=== PATIENT | male | born 1960 | race African-American/Black ===

== ENCOUNTER 2020-04-26 09:53 | Emergency (ER) | payer OTHER, SELFPAY ==
[2020-04-26 09:55] VITALS: BP 158/99; PULSE 87; RESP 17; TEMP 36.6; O2SAT 97; BMI 27.8
--- NOTE | 2020-04-26 10:29 | ED.DCSUM_ITS ---
History of Present Illness Chief Complaint: Eye Problem Informant: Patient Narrative: 60-year-old male with no past medical history presents with complaints of eye redness and itching. 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 He will have clear drainage in the mornings and his eyes will be red and itchy throughout the day. He tried Visine drops with minimal relief. Does not wear contacts. Denies ocular pain or concern for foreign body. Denies vision changes or purulent discharge. Denies fevers, chills, nausea, vomiting, headache, sore throat, ear pain, or rhinorrhea. Past Medical History - Allergies and Home Meds Allergies/Adverse Reactions: Allergies No Known Allergies Allergy (Verified 04/26/20 09:55) Primary Care Physician: [facility] [Primary Care Provider] - Past Medical History: None Smoking Status: Never smoker Review of Systems General: Denies: Chills, Fever, Sweats Eyes: Reports: - - Tearing and redness. Denies: Visual changes - left, Visual changes - bilaterally, Diplopia ENT: Denies: Rhinorrhea, Sore throat Cardiovascular: Denies: Chest pain, Palpitations Respiratory: Denies: Dyspnea, Cough, Dyspnea on exertion Gastrointestinal: Denies: Abdominal pain, Nausea, Vomiting, Diarrhea, Melena, Hematochezia Genitourinary: Denies: Dysuria, Hematuria, Frequency Musculoskeletal: Denies: Back pain, Extremity Pain Skin: Denies: Rash, Wounds Neurological: Denies: Headache, Weakness, Numbness Physical Exam Vital Signs/Narrative: Vital Signs Temp Pulse Resp BP Pulse Ox 04/26/20 09:55 97.8 F 87 17 158/99 H 97 General: Well nourished, Well developed, No Acute Distress Head: Normocephalic, Atraumatic Eyes: Perrl, EOMI, - - Normal conjunctiva. PERRL. EOMI without pain. No proptosis. Eyelids are normal without signs of infection or swelling. 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 He appears well nontoxic. He has a normal eye exam. His history is most consistent with allergic conjunctivitis. Given a prescription for Claritin and antihistamine eyedrops. Follow-up with PCP. He was agreeable and discharged home in stable condition. ED Disposition - Plan for ED Patient: Diagnosis: Allergic conjunctivitis Prescriptions: Loratadine [Claritin] 10 mg PO DAILY #14 tab Transmission Status: Pending to [facility] Ketotifen Fumarate 1 drp EACH EYE BID #1 bottle Transmission Status: Pending to [facility] [Primary Care Provider] -
[2020-04-26 12:03] VITALS: RESP 15
== END 2020-04-26 12:04 | disposition home or self-care (01) ==
LOC: ED 10:36
PROVIDERS: Emergency Provider Physician Assistant
DX: H10.13 Acute atopic conjunctivitis, bilateral (principal)
CPT/HCPCS: 99282